=== PATIENT | male | born 1950 | race Caucasian/White ===

== ENCOUNTER 2017-12-11 22:14 | Emergency (ER) | payer MEDICARE ==
[~2017-12-11 22:14] MED LIST: ALB0.5 INH; ALBU8.5H IH; ALBU8.5H12 IH; AMOX-559 PO; BECL8.7A2 IH; CETI10CA8 PO; CODE118S5 PO; IPRA3AMP21 IH; LEVO750T44 PO; MET10 PO; PER PO
--- NOTE | 2017-12-11 22:23 | ER Report ---
History and Physical Time Seen By MD: 22:23 HPI/ROS CHIEF COMPLAINT: Fever, flu symptoms HISTORY OF PRESENT ILLNESS: 67-year-old male presents with a fever and flu. Patient notes body aches. He vomited once this evening, which prompted him to come in for evaluation. Patient has a sore throat and clear rhinitis. He denies ear pain, dysuria or diarrhea. Patient notes he had dinner at the [employer] kitchen a few days ago exposed to some ill contacts. Patient also was at a cabin visiting with someone who had flu symptoms yesterday. REVIEW OF SYSTEMS: Respiratory: No cough, no dyspnea. Cardiovascular: No chest pain, no palpitations. Gastrointestinal: No vomiting, no abdominal pain. Musculoskeletal: No back pain. Allergies: Coded Allergies: azithromycin (Verified Allergy, Mild, 12/11/17) cephalexin (Verified Allergy, Mild, 12/11/17) Home Meds Active Scripts Ondansetron (ZOFRAN ODT) 4 Mg Tab.rapdis, 4 MG PO every 6 hours Y for NAUSEA/ VOMITING, #10 TAB TAKE 1 TABLET BY MOUTH EVERY 12 HOURS Prov:STEF GOODSON DO 12/11/17 Albuterol Sulfate 90 Mcg/Act (PROAIR HFA 90 MCG/ACT) 8.5 Gm Hfa.aer.ad, 1-2 PUFF IH 3-4XD, #1 INHALER 1 Refill Prov:TAI ROOT DO 11/26/15 Reported Medications Beclomethasone Dipropionate 40 Mcg/Act (QVAR 40 MCG/ACT) 7.3 Gm Aer.w.adap, 1 PUFF IH PRN 08/21/13 Discontinued Scripts Amoxicillin/Pot Clav 875-125 Mg Tab (AUGMENTIN 875-125 TABLET) 1 Each Tablet, 1 TAB PO Q12H for infection, #14 TAB TAKE ONE TABLET BY MOUTH EVERY 12 HOURS Prov:STEF GOODSON DO 03/04/17 Reviewed Nurses Notes: Yes Old Medical Records Reviewed: Yes Hx Smoking: No Smoking Status: Never Smoker Hx Substance Use Disorder: No Hx Alcohol Use: No Constitutional Vital Sign - Last 24 Hours 12/11/17 12/11/17 12/11/17 12/11/17 22:14 22:22 22:22 22:29 Temp 100.4 Pulse ??? 101 100 Resp 16 B/P (MAP) 125/77 (93) 125/77 Pulse Ox 90 91 O2 Delivery Room Air 12/11/17 12/11/17 12/11/17 12/11/17 22:30 22:44 22:59 23:00 Pulse 104 102 B/P (MAP) 117/72 (87) 116/70 (85) Pulse Ox 93 87 12/11/17 12/11/17 12/11/17 12/11/17 23:14 23:29 23:30 23:44 Pulse 107 102 ??? B/P (MAP) 105/66 (79) Pulse Ox 93 95 93 12/11/17 23:48 Temp 101.5 Physical Exam Vital signs stable, fever 100.0 General Appearance: The patient is alert, has no immediate need for airway protection and no current signs of toxicity. HEENT: Pupils equal and round no injection. TMs normal, oropharynx with redness , no exudate Respiratory: Chest is non tender, lungs are clear to auscultation. No wheezing or rails Cardiac: regular rate and rhythm Gastrointestinal: Abdomen is soft and non tender, no masses, bowel sounds normal. Musculoskeletal: Neck: Neck is supple and non tender. No lymphadenopathy, no meningismus Extremities have full range of motion and are non tender. Skin: No rashes or lesions. DIFFERENTIAL DIAGNOSIS: After history and physical exam differential diagnosis was considered for adult fever including but not limited to viral syndromes including influenza, urinary tract infection, pneumonia and sepsis. Medical Decision Making Data Points Laboratory Hematology Test 12/11/17 22:28 Influenza Virus Type A (PCR) Negative (NEGATIVE) Influenza Virus Type B (PCR) Negative (NEGATIVE) Group A Streptococcus Screen Negative (NEGATIVE) Chemistry Test 12/11/17 22:28 Influenza Virus Type A (PCR) Negative (NEGATIVE) Influenza Virus Type B (PCR) Negative (NEGATIVE) Group A Streptococcus Screen Negative (NEGATIVE) Microbiology Microbiology Date/Time Source Procedure Growth Status 12/11/17 22:28 Throat Group A Streptococcus Screen (ANUPAM) - Preliminary NORMAL RESPIRATORY PETAR PRESENT, CUL... Resulted ED Course/Re-evaluation ED Course Patient was admitted to an examination room. H&P was done. The differential diagnoses was considered. On clinical examination. Patient has clear rhinitis and a sore throat. He's had no cough. He's had no shortness of breath. He has no other infectious source. Rapid influenza was negative, rapid strep was negative. Patient was advised to conservative treatment plan with over-the- counter medications, Tylenol and ibuprofen to control his symptoms. He is advised to follow-up with primary care Dr Chin if unimproved in 3-5 days. Decision to Disposition Date: December 11, 2017 Decision to Disposition Time: 23:35 Depart Departure Latest Vital Signs Vital Signs Date Time Temp Pulse Resp B/P (MAP) Pulse Ox O2 Delivery O2 Flow Rate FiO2 12/11/17 23:48 101.5 12/11/17 23:44 ??? 93 12/11/17 23:30 105/66 (79) 12/11/17 22:22 16 Room Air Impression: Primary Impression: Viral upper respiratory infection Additional Impressions: Vomiting Fever and chills Condition: Improved Disposition: HOME OR SELF-CARE Referrals: AMIE CHIN MD (PCP) New Scripts Ondansetron (ZOFRAN ODT) 4 Mg Tab.rapdis 4 MG PO every 6 hours Y for NAUSEA/VOMITING, #10 TAB TAKE 1 TABLET BY MOUTH EVERY 12 HOURS Prov: STEF GOODSON DO 12/11/17 Patient Instructions: Acute Nausea and Vomiting (ED), Viral Syndrome (ED) Additional Instructions: Take Tylenol and ibuprofen as needed for fever or body aches Use Zofran for nausea and vomiting Follow-up with Dr Chin if unimproved in 3-5 days Problem Qualifiers Additional Impressions: Vomiting Vomiting type: unspecified Vomiting Intractability: unspecified Nausea presence: unspecified Qualified Codes: R11.10 - Vomiting, unspecified STEF GOODSON DO December 11, 2017 22:23
[2017-12-11] MEDS ORDERED: ACETAMINOPHEN 325 MG TAB PO ONE (22:40)
[2017-12-11] MEDS ORDERED: ONDANSETRON 4 MG ODT TABDP SL ONE (22:40)
[2017-12-11 23:30] VITALS: BP 105/66
[2017-12-11] MEDS ORDERED: ONDA4TAB PO (23:37)
== END 2017-12-11 23:47 | disposition home or self-care (01) ==
LOC: ER 22:45
DX: J06.9 Acute upper respiratory infection, unspecified (principal)
CPT/HCPCS: 87081; 87502; 87880; 99283; A9270; Q0162; S0119

== ENCOUNTER 2017-12-15 18:07 | Emergency (ER) | payer MEDICARE ==
[~2017-12-15 18:07] MED LIST changes: +ONDA4TAB PO
--- NOTE | 2017-12-15 18:15 | ER Report ---
History and Physical Time Seen By MD: 18:09 HPI/ROS CHIEF COMPLAINT: Fevers, body aches HISTORY OF PRESENT ILLNESS: 67-year-old male returns with concerns he may have tickborne illness. He states he had a tick on his left leg for an unknown amount of time. Patient was evaluated here several days ago. There was no rash noted. At that time. Patient was diagnosed with viral syndrome. He states he's feeling no better. Patient notes no headaches, no photophobia, no stiff neck. Patient notes a mild joint aches and body myalgias. He notes no productive cough or nausea or vomiting. REVIEW OF SYSTEMS: Respiratory: No cough, no dyspnea. Cardiovascular: No chest pain, no palpitations. Gastrointestinal: No vomiting, no abdominal pain. Musculoskeletal: No back pain. Allergies: Coded Allergies: azithromycin (Verified Allergy, Mild, 12/15/17) cephalexin (Verified Allergy, Mild, 12/15/17) Home Meds Active Scripts Ondansetron (ZOFRAN ODT) 4 Mg Tab.rapdis, 4 MG PO every 6 hours Y for NAUSEA/ VOMITING, #10 TAB TAKE 1 TABLET BY MOUTH EVERY 12 HOURS Prov:STEF GOODSON DO 12/15/17 Doxycycline Hyclate (DOXYCYCLINE HYCLATE) 100 Mg Tablet, 100 MG PO BID for Lyme disease prevention, #42 Prov:STEF GOODSON DO 12/15/17 Ondansetron (ZOFRAN ODT) 4 Mg Tab.rapdis, 4 MG PO every 6 hours Y for NAUSEA/ VOMITING, #10 TAB TAKE 1 TABLET BY MOUTH EVERY 12 HOURS Prov:STEF GOODSON DO 12/11/17 Albuterol Sulfate 90 Mcg/Act (PROAIR HFA 90 MCG/ACT) 8.5 Gm Hfa.aer.ad, 1-2 PUFF IH 3-4XD, #1 INHALER 1 Refill Prov:TAI ROOT DO 11/26/15 Reported Medications Beclomethasone Dipropionate 40 Mcg/Act (QVAR 40 MCG/ACT) 7.3 Gm Aer.w.adap, 1 PUFF IH PRN 08/21/13 Discontinued Scripts Amoxicillin/Pot Clav 875-125 Mg Tab (AUGMENTIN 875-125 TABLET) 1 Each Tablet, 1 TAB PO Q12H for infection, #14 TAB TAKE ONE TABLET BY MOUTH EVERY 12 HOURS Prov:STEF GOODSON DO 03/04/17 Reviewed Nurses Notes: Yes Old Medical Records Reviewed: Yes Hx Smoking: No Smoking Status: Never Smoker Hx Substance Use Disorder: No Hx Alcohol Use: No Constitutional Vital Sign - Last 24 Hours 12/15/17 12/15/17 12/15/17 12/15/17 18:10 18:10 18:15 18:22 Temp 99.1 Pulse 92 89 Resp 16 B/P (MAP) 116/69 116/69 (85) 106/67 (80) Pulse Ox 84 93 O2 Delivery Room Air 12/15/17 12/15/17 12/15/17 12/15/17 18:30 18:45 18:52 19:00 B/P (MAP) 110/73 (85) 110/68 (82) 109/69 (82) O2 Flow Rate 1.0 12/15/17 19:15 B/P (MAP) 113/76 (88) Physical Exam General Appearance: The patient is alert, has no immediate need for airway protection and no current signs of toxicity. Vital signs stable, afebrile, pulse ox normal HEENT: Pupils equal and round no injection. TMs normal, oropharynx without redness or exudate Respiratory: Chest is non tender, lungs are clear to auscultation. Cardiac: regular rate and rhythm Gastrointestinal: Abdomen is soft and non tender, no masses, bowel sounds normal. No obvious wounds were tick was noted by patient Musculoskeletal: Neck: Neck is supple and non tender. No lymphadenopathy Extremities have full range of motion and are non tender. Examination of the left posterior thigh were patient states the tick was for an unknown amount of time. He is a small, slightly erythematous area approximately 4 mm in diameter with no induration or tenderness Skin: No rashes or lesions. DIFFERENTIAL DIAGNOSIS: After history and physical exam differential diagnosis was considered for adult fever including but not limited to viral syndromes including influenza, urinary tract infection, [place] spotted fever, Lyme's disease, pneumonia and sepsis. Medical Decision Making Data Points Result Diagram: 12/15/173 12/15/173 Laboratory Hematology Test 12/15/17 18:33 Red Blood Count 5.07 M/uL (4.00-5.60) Mean Corpuscular Volume 90.7 fL (80.0-96.0) Mean Corpuscular Hemoglobin 31.7 pg (26.0-33.0) Mean Corpuscular Hemoglobin Concent 34.9 g/dL (32.0-36.0) Red Cell Distribution Width 12.9 % (11.5-14.5) Mean Platelet Volume 8.0 fL (7.2-11.1) Neutrophils % (Manual) 84 % (39.4-72.5) Lymphocytes % (Manual) 7 % (17.6-49.6) Monocytes % (Manual) 9 % (4.1-12.4) Eosinophils % (Manual) 0 % (0.4-6.7) Basophils % (Manual) 0 % (0.3-1.4) Erythrocyte Sedimentation Rate 1 mm/HOUR (0-20) Sodium Level 134 mmol/L (137-145) Potassium Level 4.4 mmol/L (3.5-5.0) Chloride Level 97 mmol/L (98-107) Carbon Dioxide Level 30 mmol/L (22-30) Blood Urea Nitrogen 14 mg/dl (9-21) Creatinine 1.00 mg/dl (0.66-1.25) Glomerular Filtration Rate Calc > 60.0 Random Glucose 107 mg/dl (75-110) Calcium Level 8.7 mg/dl (8.4-10.2) Total Bilirubin 0.3 mg/dl (0.2-1.3) Aspartate Amino Transf (AST/SGOT) 24 U/L (0-35) Alanine Aminotransferase (ALT/SGPT) 30 U/L (0-56) Alkaline Phosphatase 64 U/L (0-126) Total Protein 6.4 gm/dl (6.3-8.2) Albumin 3.4 g/dl (3.5-5.0) Chemistry Test 12/15/17 18:33 White Blood Count 3.2 k/uL (4.5-11.0) Red Blood Count 5.07 M/uL (4.00-5.60) Hemoglobin 16.0 g/dL (14.0-18.0) Hematocrit 46.0 % (42.0-52.0) Mean Corpuscular Volume 90.7 fL (80.0-96.0) Mean Corpuscular Hemoglobin 31.7 pg (26.0-33.0) Mean Corpuscular Hemoglobin Concent 34.9 g/dL (32.0-36.0) Red Cell Distribution Width 12.9 % (11.5-14.5) Platelet Count 122 K/uL (150-450) Mean Platelet Volume 8.0 fL (7.2-11.1) Neutrophils % (Manual) 84 % (39.4-72.5) Lymphocytes % (Manual) 7 % (17.6-49.6) Monocytes % (Manual) 9 % (4.1-12.4) Eosinophils % (Manual) 0 % (0.4-6.7) Basophils % (Manual) 0 % (0.3-1.4) Erythrocyte Sedimentation Rate 1 mm/HOUR (0-20) Glomerular Filtration Rate Calc > 60.0 Calcium Level 8.7 mg/dl (8.4-10.2) Total Bilirubin 0.3 mg/dl (0.2-1.3) Aspartate Amino Transf (AST/SGOT) 24 U/L (0-35) Alanine Aminotransferase (ALT/SGPT) 30 U/L (0-56) Alkaline Phosphatase 64 U/L (0-126) Total Protein 6.4 gm/dl (6.3-8.2) Albumin 3.4 g/dl (3.5-5.0) EKG/Imaging EKG Interpretation 12 lead EK Rhythm: normal sinus rhythm at 89 bpm [place]: normal QRS: normal ST segments: Nonspecific T wave abnormality, no old EKGs for comparison ED Course/Re-evaluation ED Course Patient was admitted to an examination room. H&P was done. The differential diagnoses was considered. On clinical examination. Patient has no clinical findings of a bacterial infection. I suspect he is viral syndrome. Lyme titers were ordered. A CBC shows a slightly low white blood cell count. Sedimentation rate is 1. Patient we treated with doxycycline prophylactically twice a day for 3 weeks. Patient's advised to follow-up with his primary care Dr Chin next week for follow-up on the Lyme titer which is a send out. Decision to Disposition Date: December 15, 2017 Decision to Disposition Time: 18:43 Depart Departure Latest Vital Signs Vital Signs Date Time Temp Pulse Resp B/P (MAP) Pulse Ox O2 Delivery O2 Flow Rate FiO2 12/15/17 19:15 113/76 (88) 12/15/17 18:52 1.0 12/15/17 18:22 89 93 12/15/17 18:10 99.1 16 Room Air Impression: Primary Impression: Tick bite of buttock Additional Impressions: Tick bite of abdomen Fever Condition: Improved Disposition: HOME OR SELF-CARE Referrals: AMIE CHIN MD (PCP) New Scripts Ondansetron (ZOFRAN ODT) 4 Mg Tab.rapdis 4 MG PO every 6 hours Y for NAUSEA/VOMITING, #10 TAB TAKE 1 TABLET BY MOUTH EVERY 12 HOURS Prov: STEF GOODSON DO 12/15/17 Doxycycline Hyclate (DOXYCYCLINE HYCLATE) 100 Mg Tablet 100 MG PO BID for Lyme disease prevention, #42 Prov: STEF GOODSON DO 12/15/17 Patient Instructions: Lyme Disease (ED) Additional Instructions: Follow-up with your primary care doctor in 3-5 days Problem Qualifiers Primary Impression: Tick bite of buttock Encounter type: initial encounter Qualified Codes: S30.860A - Insect bite ( nonvenomous) of lower back and pelvis, initial encounter; W57.XXXA - Bitten or stung by nonvenomous insect and other nonvenomous arthropods, initial encounter Additional Impressions: Tick bite of abdomen Encounter type: initial encounter Qualified Codes: S30.861A - Insect bite ( nonvenomous) of abdominal wall, initial encounter; W57.XXXA - Bitten or stung by nonvenomous insect and other nonvenomous arthropods, initial encounter Fever Fever type: unspecified Qualified Codes: R50.9 - Fever, unspecified STEF GOODSON DO December 15, 2017 18:14
--- NOTE | 2017-12-15 18:32 | EKG ---
[place] [facility] [place] NAME[place] MOISES SETH : [id number] MR: [id number] V: [id number] EXAM DATE: ORDERING PHYSICIAN: STEF GOODSON TECHNOLOGIST: WELSEY Mayen Reason : FEVER Blood Pressure : / mmHG Vent. Rate : 089 BPM Atrial Rate : 089 BPM P-R Int : 164 ms QRS Dur : 084 ms QT Int : 364 ms P-R-T Axes : 051 -23 021 degrees QTc Int : 442 ms Sinus rhythm Possible left atrial enlargement Left axis ST-T findings anterior leads concerning for ischemia Abnormal ECG No previous ECGs available Confirmed by TERRI MAHAN [id number] on 12/16/2017 11:27:56 AM Referred By: Confirmed By:TERRI MAHAN
[2017-12-15 18:43] LABS: PLATELET COUNT, AUTOMATED 122 K/uL (150-450)
[2017-12-15] MEDS ORDERED: DOXY-179 PO (18:45)
[2017-12-15] MEDS ORDERED: DOXYCYCLINE HYCL 100 MG TAB PO ONE (19:10)
[2017-12-15] MEDS ORDERED: ONDA4TAB PO (19:14)
[2017-12-15 19:15] VITALS: BP 113/76
[2017-12-15] MEDS ORDERED: ONDANSETRON 4 MG ODT TABDP SL ONE (19:15)
[2017-12-15] MEDS ORDERED: ONDANSETRON 4 MG ODT TH SL ONE (19:15)
== END 2017-12-15 19:20 | disposition home or self-care (01) ==
LOC: ER 18:11
DX: S30.860A Insect bite (nonvenomous) of lower back and pelvis, initial encounter (principal); S30.861A Insect bite (nonvenomous) of abdominal wall, initial encounter; R50.9 Fever, unspecified; R94.31 Abnormal electrocardiogram [ECG] [EKG]
CPT/HCPCS: 36415; 85007; 85027; 85651; 86618; 93005; 99283; A9270; Q0162; 82040; 82247; 82310; 82374; 82435; 82565; 82947; 84075; 84132; 84155; 84295; 84450; 84460; 84520; S0119